=== PATIENT | male | born 1965 | race Caucasian/White ===

== ENCOUNTER 2020-04-29 16:40 | Emergency (ER) | payer BC, SELFPAY ==
[2020-04-29 16:44] VITALS: BP 143/56; PULSE 105; RESP 14; TEMP 36.6; O2SAT 96; BMI 28.1
--- NOTE | 2020-04-29 16:56 | XRR_ITS ---
PROCEDURE INFORMATION: Exam: XR Left Hand Exam date and time: 04/29/2020 5:18 PM Age: 54 years old Clinical indication: Injury or trauma; Injury history: Left hand trauma with saw; Initial encounter; Laceration; Injury date: 04/29/20 TECHNIQUE: Imaging protocol: XR Left hand. Views: 3 or more views. COMPARISON: No relevant prior studies available. FINDINGS: Bones/joints: No fracture. No dislocation. Soft tissues: Soft tissue injury to at least the tips of the middle and ring finger. Punctate radiopaque foreign bodies on, or possibly just subdermal, the radial aspect of the middle finger at the level of the distal aspect of the proximal phalanx. XR/XR hand LT min 3V* 22492 IMPRESSION: 1. No acute osseous abnormality. 2. Soft tissue injury. Radiopaque foreign bodies. See above.
--- NOTE | 2020-04-29 16:57 | W.ED.WOUNDLC ---
Documented by User: [email or web address] Pittman 04/30/20 07:45 HPI - Wound/Laceration General: Chief Complaint: Wound/Laceration Stated Complaint: chop saw cut fingers Time Seen by Provider: 04/29/20 16:54 History of Present Illness: HPI narrative: She states he was using a chop saw earlier today and came down on his left hand making fingers 4 and 5 and he went to the [facility] and they irrigated and wrapped and sent him up here. No x-ray was done he needs a tetanus shot. Said he has a substantial laceration to the pad a #4 and 5 finger Onset (ago): hour(s) Extremity Location: Left: hand Place: home Patient tetanus UTD: No Context: accidental Associated symptoms: Reports no associated symptoms; Denies chills or fever(s) Treatments prior to arrival: bandage and other (Irrigation by [facility]) Review of Systems Const: Denies: fever(s) or chills Skin/Breast: Reports: other (Left hand lacerations fingers #4 and 5 from a chop saw) Physical Exam Const: COMMON NORMALS: no acute distress Psych: COMMON NORMALS: mental status grossly normal Skin: OTHER: Dressing is in place Course Vital Signs: Vital signs: Vital Signs Temperature 97.9 F 04/29/20 16:44 Pulse Rate 84 04/29/20 18:55 Respiratory Rate 16 04/29/20 18:55 Blood Pressure 152/111 04/29/20 18:55 Pulse Oximetry 96 04/29/20 18:55 Discharge Plan Discharge Patient Disposition: Home Clinical Impression: Laceration, Avulsion of skin Condition: Stable Prescriptions: New cephalexin 500 mg capsule 500 mg PO TID 7 Days Qty: 21 RF: 0 No Action Multiple Vitamins Tablet 1 tab PO DAILY RF: 0 losartan 50 mg tablet 50 mg PO DAILY RF: 0 fluoxetine 40 mg capsule 40 mg PO DAILY RF: 0 vitamin E 200 unit Capsule 200 unit PO DAILY RF: 0 trazodone 50 mg tablet 50 mg PO DAILY RF: 0 naltrexone 50 mg tablet 50 mg PO DAILY RF: 0 Vitamin B-1 100 mg tablet 100 mg PO DAILY RF: 0 temazepam 15 mg capsule 15 mg PO DAILY RF: 0 vitamin B complex Tablet 1 tab PO DAILY RF: 0 folic acid 1 mg tablet 1 mg PO DAILY RF: 0 diltiazem HCl 60 mg tablet 60 mg PO BID RF: 0 potassium chloride 10 mEq tablet,ER particles/crystals 10 meq PO DAILY RF: 0 bupropion HCl 150 mg tablet extended release 24 hr 150 mg PO DAILY RF: 0 Vitamin D3 25 mcg (1,000 unit) Tablet 25 mcg PO DAILY RF: 0 Fish Oil 340-1,000 mg Capsule 1 cap PO DAILY RF: 0 turmeric 400 mg Capsule 400 mg PO DAILY RF: 0 Discharge Orders: Discharge Order (Routine); Ordered 04/29/20 Ordered By: Jeancarlos Quezada Discharge Diet: Regular Discharge Activity: Limit activity as instructed Patient Instructions: Finger Laceration (ED), Skin Avulsion (ED) Activity Restrictions/Additional Instructions: Follow-up with medical provider as directed. Contact your PCP and have them refer you to wound care clinic to evaluate healing of wound. take medications as prescribed. Return to the ER or your medical provider if condition worsens. Please read and understand discharge instructions. If any questions, please ask. Take full course of antibiotics as prescribed. Keep laceration site clean and dry for the next 48 hours. Then after that you can clean and re-bandage daily. Watch for signs of infection such as redness, warmth, increased tenderness and puslike drainage. If you see the signs of infection return to the ED, urgent care or PCP for reevaluation. call your PCP to schedule a follow-up appointment for reevaluation and suture removal in about 7-10 days. Continue taking all home meds. Follow discharge plans as discussed. You can return to the ED if symptoms worsen. Discharge Date/Time: 04/29/20 18:58 Sign Out Sign Out Data: Patient Sign Out occurred on 04/29/20 at 17:05. Patient's care was discussed, and care was transferred from to GIANA Machado. Coding Level of Care Code ED H[employer]er for Chg Fwd Exam Detailed Documented by User: GIANA Machado 04/29/20 18:44 HPI - Wound/Laceration General: Chief Complaint: Wound/Laceration Stated Complaint: chop saw cut fingers Time Seen by Provider: 04/29/20 16:54 Physical Exam Const: COMMON NORMALS: patient oriented x3 Resp: COMMON NORMALS: normal respiratory effort, No retractions, No use of accessory muscles and clear to auscultation bilaterally AUSCULTATION: clear to auscultation bilaterally Cardio: COMMON NORMALS: regular rate, regular rhythm, S1 normal heart sound present, S2 normal heart sound present, No gallops present (Cardio), No clicks present (Cardio), No murmurs present (Cardio) and Peripheral pulses 2+ throughout RATE: regular rate RHYTHM: regular rhythm HEART SOUNDS: S1 normal heart sound present and S2 normal heart sound present PERIPHERAL PULSES: Peripheral pulses 2+ throughout GI: COMMON NORMALS: Normal to inspection, nondistended, normoactive bowel sounds present, Soft to palpation, non-tender and no masses PALPATION: Yes Soft to palpation Extremity: NARRATIVE EXTREMITY EXAM: Patient has a 1 cm laceration on the left ring finger that forms a flap. On the left middle finger patient has a avulsion of the fat pad on skin. Neuro: COMMON NORMALS: patient oriented x3 Procedures Laceration Laceration 1: Site: hand (ring finger) Side (If applicable): left Size (cm): 1 Description: flap Depth: simple, single layer Local Anesthetic: lidocaine 2% (Digital block) Amount of anesthesia used (mL): 10 Pre-repair: irrigated extensively (With normal saline) Skin layer closed with: nylon Size (cm): 4-0 Number of sutures: 4 Technique: simple, interrupted Nerve Block Nerve Block 1: Time out performed: Yes Local Anesthetic: lidocaine 2% Amount of anesthesia used (mL): 10 Side: left Nerve Blocks: digital (Ring finger (4th digit)) Procedure Successful: Yes Patient Tolerated Procedure: well Complications: none Nerve Block 2: Time out performed: Yes Local Anesthetic: lidocaine 2% Amount of anesthesia used (mL): 10 Side: left Nerve Blocks: digital (middle finger (3rd digit)) Procedure Successful: Yes Patient Tolerated Procedure: well Complications: none Course Vital Signs: Vital signs: Vital Signs Temperature 97.9 F 04/29/20 16:44 Pulse Rate 84 04/29/20 18:55 Respiratory Rate 16 04/29/20 18:55 Blood Pressure 152/111 04/29/20 18:55 Pulse Oximetry 96 04/29/20 18:55 MDM - Wound/Laceration MDM Narrative: Medical decision making narrative: Patient is a 54-year-old male who comes to the ED with a laceration to his finger of left hand from a chop saw. X-ray of left hand showed no acute fractures. Physical exam showed an avulsion of skin on the middle finger fat pad of left hand. The ring finger had 1 cm laceration that was in the shape of a flap. A digital block was performed on both middle finger and ring finger with lidocaine 2%. Irrigated extensively with normal saline. 4 sutures were placed in laceration on ring finger. Nurse then applied bandage. Patient was given a dose of cephalexin while here in the ED and sent home on a prescription for cephalexin as prophylactic treatment. I was going to set up patient to have wound care follow-up here in [facility], but he said he does not live around here and lives in [place]. I told him that he will need to get set up with a wound care clinic to evaluate and monitor the healing of wound on fingers. Patient said he will call his PCP kimberly and leave a message and let them know that he needs to be referred to wound care clinic. Patient was given instructions on how to care for wound. He was informed on what to look for for signs of infection. Patient understood and agreed with plan. Turn to ED precautions given Imaging Data^: Xray Ortho: Attestation: I personally reviewed and interpreted this imaging study as follows: My impression: Left hand x-ray showed no acute fractures or findings. Pending final radiology report. Discharge Plan Discharge Patient Disposition: Home Clinical Impression: Laceration, Avulsion of skin Condition: Stable Prescriptions: New cephalexin 500 mg capsule 500 mg PO TID 7 Days Qty: 21 RF: 0 No Action Multiple Vitamins Tablet 1 tab PO DAILY RF: 0 losartan 50 mg tablet 50 mg PO DAILY RF: 0 fluoxetine 40 mg capsule 40 mg PO DAILY RF: 0 vitamin E 200 unit Capsule 200 unit PO DAILY RF: 0 trazodone 50 mg tablet 50 mg PO DAILY RF: 0 naltrexone 50 mg tablet 50 mg PO DAILY RF: 0 Vitamin B-1 100 mg tablet 100 mg PO DAILY RF: 0 temazepam 15 mg capsule 15 mg PO DAILY RF: 0 vitamin B complex Tablet 1 tab PO DAILY RF: 0 folic acid 1 mg tablet 1 mg PO DAILY RF: 0 diltiazem HCl 60 mg tablet 60 mg PO BID RF: 0 potassium chloride 10 mEq tablet,ER particles/crystals 10 meq PO DAILY RF: 0 bupropion HCl 150 mg tablet extended release 24 hr 150 mg PO DAILY RF: 0 Vitamin D3 25 mcg (1,000 unit) Tablet 25 mcg PO DAILY RF: 0 Fish Oil 340-1,000 mg Capsule 1 cap PO DAILY RF: 0 turmeric 400 mg Capsule 400 mg PO DAILY RF: 0 Discharge Orders: Discharge Order (Routine); Ordered 04/29/20 Ordered By: Jeancarlos Quezada Discharge Diet: Regular Discharge Activity: Limit activity as instructed Patient Instructions: Finger Laceration (ED), Skin Avulsion (ED) Activity Restrictions/Additional Instructions: Follow-up with medical provider as directed. Contact your PCP and have them refer you to wound care clinic to evaluate healing of wound. take medications as prescribed. Return to the ER or your medical provider if condition worsens. Please read and understand discharge instructions. If any questions, please ask. Take full course of antibiotics as prescribed. Keep laceration site clean and dry for the next 48 hours. Then after that you can clean and re-bandage daily. Watch for signs of infection such as redness, warmth, increased tenderness and puslike drainage. If you see the signs of infection return to the ED, urgent care or PCP for reevaluation. call your PCP to schedule a follow-up appointment for reevaluation and suture removal in about 7-10 days. Continue taking all home meds. Follow discharge plans as discussed. You can return to the ED if symptoms worsen. Discharge Date/Time: 04/29/20 18:58 Sign Out Sign Out Data: Patient Sign Out occurred on 04/29/20 at 17:05. Patient's care was discussed, and care was transferred from to GIANA Machado. Coding Level of Care Code ED H[employer] Mat Assembler for Stacie Fwd Exam Detailed
[2020-04-29] MEDS: HYDROcodone-acetaminophen 7.5-325 mg Tablet 1 TAB PO ×2 (17:57→18:49)
[2020-04-29] MEDS: tetanus-dipt-pertussis 0.5 mL SDV IM (17:58)
[2020-04-29] MEDS: lidocaine 2% INJ 20 mL INJECTION (17:59)
[2020-04-29 18:01] VITALS: RESP 20
[2020-04-29] MEDS: cephALEXin 500 mg Capsule PO (18:49)
[2020-04-29 18:55] VITALS: BP 152/111; PULSE 84; RESP 16; O2SAT 96
== END 2020-04-29 18:58 | disposition home or self-care (01) ==
PROVIDERS: Emergency Provider Physician Assistant
DX: S61.215A Laceration without foreign body of left ring finger without damage to nail, initial encounter (principal); S61.203A Unspecified open wound of left middle finger without damage to nail, initial encounter; W27.0XXA Contact with workbench tool, initial encounter; Z23 Encounter for immunization
CPT/HCPCS: 12001; 12345; 73130; 90471; 90715; 96372; 99281; 99282